=== PATIENT | male | born 1985 | race Caucasian/White ===

== ENCOUNTER 2017-01-11 12:53 | Emergency (ER) | payer OTHER ==
[~2017-01-11] VITALS: Ht 177.8 cm; Wt 86.2 kg
[~2017-01-11 12:53] MED LIST: ATIVAN1 MG PO; IBU800 MG PO; PERCOCET 325 MG1 TA2 PO
[2017-01-11 12:58] VITALS: BP 150/80
--- NOTE | 2017-01-11 13:10 | ED THROAT/DENTAL COMPLAINT ---
History of Present Illness General Chief Complaint: Sore Throat, Dental Pain Stated Complaint: "TONSILITIS"?, FEVER OF 102 PER PT'S GIRLFRIEND Source: patient, old records Exam Limitations: no limitations Vital Signs & Intake/Output Vital Signs & Intake/Output Vital Signs Date Time Temp Pulse Resp B/P B/P Pulse O2 O2 Flow FiO2 Mean Ox Delivery Rate 01/11 1351 100.6 90 01/11 1334 100.6 01/11 1323 Room Air Room Air 01/11 1302 102.3 01/11 1258 102.3 101 18 150/80 98 Room Air Allergies Coded Allergies: NO KNOWN ALLERGIES (01/11/17) Reconcile Medications Amoxicillin/Potassium Clav (Augmentin 875-125 Tablet) 875 MG-125 MG TABLET 1 TAB PO BID PHARYNGITIS Methylprednisolone. (Medrol) 4 MG TAB.DS.PK 1 DP PO AD PHARYNGITIS 6 on day 1 then reduce by one tablet daily until gone Triage Note: TRIAGE: PATIENT TO ER W/ GIRLFRIEND REPORTS ?TONSILITIS W/ FEVER AT HOME. PATIENT REPORTS SINCE LAST NIGHT COUGHING W/ SORE THROAT AND +SOB. Triage Nurses Notes Reviewed? yes Onset: Abrupt Duration: day(s): (2), constant Timing: recent history Injury Environment: home Severity: moderate Severity Numbers: 7 No Modifying Factors: none Associated Symptoms: cough HPI: 31-year-old male with no medical history active smoker presents to ER for evaluation complaining of progressively worsening sore throat fever or chills nonproductive cough for the past 2 days. No sick contacts. Patient denies any abdominal pain nausea vomiting or diarrhea no rhinorrhea congestion. He denies chest pain rashes to his skin recent tick or insect bite. He took Motrin earlier today without improvement of his fever. (ANEESH GUO) Past History Travel History Traveled to [place] past 21 day No Medical History Any Pertinent Medical History? see below for history Neurological: NONE EENT: NONE Cardiovascular: NONE Respiratory: NONE Gastrointestinal: NONE Hepatic: NONE Renal: NONE Musculoskeletal: NONE Psychiatric: alcohol dependence, IV drug abuse Blood Disorders: NONE Cancer(s): NONE [employer]/Reproductive: NONE Tetanus Vaccine: 03/28/14 Surgical History Surgical History: non-contributory Psychosocial History Who do you live with Mother What is your primary language Vietnamese Tobacco Use: Current Daily Use Daily Tobacco Use Amount/Type: => 5 Cigarettes daily Family History Hx Contributory? No (ANEESH GUO) Review of Systems Review of Systems Constitutional: Reports: see HPI. All Other Systems: Reviewed and Negative Comments Review of systems: See HPI, All other systems negative. Constitutional, chills fever, no malaise HEENT: No visual changes sore throat no congestion Cardiovascular: No chest pain , no palpitation Skin: no rashes, no change in skin Respiratory: No dyspnea no cough no sputum GI: No nausea no vomiting, no diarrhea, no bloating/constipation : No dysuria No hematuria Muscle skeletal: No joint pain, no back pain, no neck pain, Neurologic: no headache Psych: No stress Heme/endocrine: No bruising Immunology: No lymphadenopathy (ANEESH GUO) Physical Exam Physical Exam General Appearance: well developed/nourished, alert, awake Mouth/Throat: pharyngeal erythema Comments: Well-developed well-nourished patient in no apparent distress. Head/Face: Atraumatic, no maxillary/frontal sinus tenderness, no facial swelling Eyes: PERRL, EOMI, no conjunctival injection. No nystagmus Ear:External auditory canal and Tympanic membranes clear, no erythema, no FB. Nose: atraumatic.Normal inspection: No bleeding, no septal hematoma Throat: Moist mucous membranes.pharyngeal erythema no exudate mild tonsillar swelling, no stridor/drooling or assymetry Neck: Supple, anterior lymphadenopathy, FROM Back: FROM Cardiovascular: Regular rate and rhythms no murmurs rubs or gallops, Respiratory: Chest nontender.There were no bony deformities, no asymmetry. No respiratory distress. Patient speaking in full complete sentences. Breath sounds clear to auscultation bilaterally: NO W/R/R Extremities: full range of motion Neuro: awake, alert, and oriented to person, place and time. There were no obvious focal neurologic abnormalities. Skin: Warm & dry;No appreciable rash on exposed skin Psych: Mood affect normal, normal memory normal judgment. Core Measures ACS in differential dx? No Severe Sepsis Present: No Septic Shock Present: No (ANEESH GUO) Progress Differential Diagnosis: epiglottitis, Ludwigs angina, odontogenic abscess, roula- tonsillar abscess, mono, viral syndrome tonsillitis tickborne illness Plan of Care: Orders Procedure Date/time Status THROAT CULTURE W/QUICK STREP 01/11 1307 Active Current Medications Sig/Keisha Start time Last Medication Dose Stop Time Status Admin Amoxicillin/ 875 MG ONCE ONE 01/11 1345 CAN Clavulanate Potassium 01/11 1346 (Augmentin) Patient medicated Tylenol in triage I discussed with the patient at length all of their results. I had an extensive conversation regarding need for close follow up with their primary care physician this week as well as return precautions. I answered all of their questions, they feel comfortable with the plan and follow-up care. I discussed the medications that they will receive with the patient. I gave them signs and symptoms that could indicate an adverse reaction. I have advised them to limit their activities until they can see how they respond to the medication. (ANEESH GUO) Departure Departure Time of Disposition: 1338 Disposition: HOME OR SELF CARE Condition: Stable Clinical Impression Primary Impression: Pharyngitis Referrals: PATIENT HAS NO PRIMARY CARE DR (PCP/Family) Additional Instructions: rest, interchange tylenol or motrin 800mg every 4-6 hours. augmentin and medrol dose thompson as discussed. this was sent to your [facility] pharmacy. drink plenty of fluids, return to the ER with any concerns Departure Forms: Customer Survey General Discharge Information Prescriptions: Current Visit Scripts Amoxicillin/Potassium Clav (Augmentin 875-125 Tablet) 1 TAB PO BID #14 TAB Methylprednisolone. (Medrol) 1 DP PO AD #1 DP 6 on day 1 then reduce by one tablet daily until gone (ANEESH GUO) PA/ALIGNER Co-Sign Statement Statement: ED Attending supervision documentation- [] I saw and evaluated the patient. I have also reviewed all the pertinent lab results and diagnostic results. I agree with the findings and the plan of care as documented in the PA's/ALIGNER's documentation. [X] I have reviewed the ED Record and agree with the PA's/ALIGNER's documentation. [] Additions or exceptions (if any) to the PAs/ALIGNER's note and plan are summarized below: [] (LAKIA KHALIL,IRASEMA Dupont)
[2017-01-11] MEDS ORDERED: MEDROL4 M2 PO (13:40)
[2017-01-11] MEDS ORDERED: AUGMENTIN 875-1 EACH PO (13:40)
== END 2017-01-11 13:52 ==
LOC: ERH 12:53
DX: J02.9 Acute pharyngitis, unspecified (principal); Z72.0 Tobacco use
CPT/HCPCS: 87147; J3490